=== PATIENT | female | born 1950 | race Caucasian/White ===

== ENCOUNTER 2019-04-13 09:34 | Inpatient (IN) | payer MEDICARE ==
[2019-04-13] MEDS ORDERED: OXYBUTYNIN CHLOR5 MG PO (09:40)
[2019-04-13] MEDS ORDERED: SINGULAIR10 MG PO (09:41)
[2019-04-13] MEDS ORDERED: ARMOUR THYROID240 MG PO (09:41)
[2019-04-13] MEDS ORDERED: COREG25 MG PO (09:42)
[2019-04-13] MEDS ORDERED: VALIUM 2 MG TAB2 MG PO (09:42)
[2019-04-13] MEDS ORDERED: ALDACTONE50 MG PO (09:42)
[2019-04-13] MEDS ORDERED: LIPITOR10 MG PO (09:43)
[2019-04-13 10:10] LABS: BASOPHILS 0.6 % (0-2); EOSINOPHILS 1.7 % (0-7); HEMATOCRIT 37.5 % (36.0-48.0); HEMOGLOBIN 12.5 g/dL (12-16); IMMATURE GRANULOCYTES 0.6 % (0-5); LYMPHOCYTES 21.4 % (15-50); MCH 31.6 pg (26.0-34.0); MCHC 33.3 g/dL (31.0-37.0); MCV 94.7 fL (80.0-100.0); MEAN PLATELET VOLUME 10.3 fL (7.4-10.4); MONOCYTES 7.9 % (2-11); NEUTROPHILS 67.8 % (40-80); PLATELET COUNT 294 10x3/uL (130-400); RBC 3.96 10x6/uL (4.00-5.40); RDW 12.9 % (11.5-14.5); WBC 10.1 10x3/uL (4.8-10.8)
[2019-04-13 10:15] VITALS: BP 131/74
--- NOTE | 2019-04-13 10:15 | NUR ---
PATIENT AWAKE AND ALERT, BLANKET GIVEN FOR COMFORT. UPDATED ON PLAN OF CARE AND DELAYS IN CARE. WILL CONTINUE TO MONITOR.
[2019-04-13 10:23] LABS: ALBUMIN 3.7 g/dL (3.4-5.0); ALKALINE PHOSPHATASE 58 U/L (46-116); ALT (SGPT) 31 U/L (10-68); BILIRUBIN - TOTAL 0.39 mg/dL (0.2-1.3); CALC OSMOLALITY 286 mosm/kg (275-300); CALCIUM 9.2 mg/dL (8.5-10.1); CARBON DIOXIDE 25.8 mmol/L (21.0-32.0); CHLORIDE - SERUM 106 mmol/L (98-107); CREATININE - SERUM 0.9 mg/dL (0.6-1.3); GLUCOSE 113 mg/dL (74-106); POTASSIUM - SERUM 4.5 mmol/L (3.5-5.1); PROTEIN - SERUM 7.4 g/dL (6.4-8.2); SODIUM 141 mmol/L (136-145); UREA NITROGEN 27 mg/dL (7-18); eGFR NON AFRICAN AMERICAN 66 mL/min (90-120)
[2019-04-13 10:26] LABS: APTT 26.5 SECONDS (22.8-39.4); INR 1.03 (0.85-1.17)
[2019-04-13 10:36] LABS: CREATINE KINASE 45 UL (21-215); MAGNESIUM - SERUM 1.9 mg/dL (1.8-2.4); TROPONIN-I < 0.017 ng/mL (0.000-0.060)
[2019-04-13 11:04] LABS: D-DIMER-QUANTITATIVE 0.73 ug/mLFEU (0.20-0.54)
--- NOTE | 2019-04-13 11:10 | NUR ---
URINE SENT TO LAB VIA TUBE SYSTEM.
[2019-04-13 11:38] LABS: APPEARANCE CLEAR (CLEAR); BILIRUBIN NEGATIVE (NEGATIVE); COLOR YELLOW (YELLOW); GLUCOSE NEGATIVE (NEGATIVE); KETONE NEGATIVE (NEGATIVE); NITRITE POSITIVE (NEGATIVE); PROTEIN NEGATIVE (NEGATIVE); SPECIFIC GRAVITY 1.015 (1.005-1.020); UROBILINOGEN NORMAL (NORMAL)
[2019-04-13 11:39] LABS: BACTERIA MANY /hpf (NONE SEEN); EPITHELIAL CELLS OCC /hpf (0-5); HYALINE CAST RARE /lpf (NONE SEEN); MUCUS <1+ /lpf (NONE SEEN)
[2019-04-13 11:55] VITALS: BP 109/52
--- NOTE | 2019-04-13 12:15 | NUR ---
PATIENT AWAKE AND ALERT. RESPIRATIONS EVEN AND UNLABORED. UPDATED ON PLAN OF CARE AND DELAYS IN CARE. WILL CONTINUE TO MONITOR.
--- NOTE | 2019-04-13 13:00 | NUR ---
AMBULATED PATIENT WITHOUT OXYGEN. SAT DECREASED TO 88% AND INCREASED DYSPNEA. WALKED HER BACK TO THE ROOM AND CHECKED OXYGEN SAT ON HER TOE. 91% ON RA SITTING.
[2019-04-13 15:02] LABS: CKMB 0.3 U/L (0.0-3.6); CREATINE KINASE 47 UL (21-215); TROPONIN-I < 0.017 ng/mL (0.000-0.060)
[2019-04-13 15:11] VITALS: BP 117/66
[2019-04-13 15:32] VITALS: BP 108/57; BMI 36.9
--- NOTE | 2019-04-13 15:46 | NUR ---
PATIENT ADMITTED TO ROOM 2238. SIGNIFICANT OTHER AND SON AT BEDSIDE. ALERT AND ORIENTED X 3. LUNGS CLEAR BILATERALLY IN ALL HOWE. BOWEL SOUNDS ACTIVE X 4. SKIN INTACT WITHOUT REDNESS. STATES CAME IN WITH CHEST PAIN AND ADMITTED WITH SOB. O2 IN PLACE AT 2L NC. IV TO LEFT AC PATENT WITHOUT REDNESS. DENIES PAIN. REQUESTED AND GIVEN SPRITE. DENIES FURTHER NEEDS. BED LOW. CALL HOLLIDAY AND PERSONAL ITEMS IN REACH. WILL CONTINUE TO MONITOR.
--- NOTE | 2019-04-13 16:16 | NUR ---
RESTING IN BED. DENIES PAIN. DENIES NEEDS. WILL CONTINUE TO MONITOR.
--- NOTE | 2019-04-13 16:38 | NUR ---
REALIZED PATIENT HAS PRN NORCO, BRINGING FALL SCORE TO 3. PATIENT REFUSED BED ALARM. BED ALARM REFUSAL SIGNED AND ON CHART.
[2019-04-13 16:58] VITALS: BP 94/62
--- NOTE | 2019-04-13 18:19 | NUR ---
SITTING IN BED. REQUESTED AND GIVEN SHERBET. DENIES FURTHER NEEDS. DENIES PAIN. BED LOW. CALL HOLLIDAY AND PERSONAL ITEMS IN REACH.
[2019-04-13 20:22] VITALS: BP 122/57
[2019-04-13 21:26] LABS: CKMB 0.4 U/L (0.0-3.6); CREATINE KINASE 51 UL (21-215); TROPONIN-I < 0.017 ng/mL (0.000-0.060)
[2019-04-14 00:45] VITALS: BP 105/58
[2019-04-14 02:19] LABS: CKMB 0.2 U/L (0.0-3.6); CREATINE KINASE 61 UL (21-215); TROPONIN-I < 0.017 ng/mL (0.000-0.060)
--- NOTE | 2019-04-14 04:06 | NUR ---
PATIENT C/O CHEST PAIN PRESSER, AND DIFFICULTY BREATHING AT 1930. CALL TO dealer development manager SUPERVISOR NET MAKING MISTI VALDERRAMA. V/S 122/59, 101, 97.8, 18, 92% ADJUNCT PHILOSOPHY FACULTY RETRUNED AND CAME TO FLOOR NEW ORDERS FOR ELECTROCARDIOGRAM, TROPONIN -1, CREATINE KINASE, CKMM X3 LABS HAVE BEEN WNL. PT WITH NO FUTHER C/O OF DISCOMFORT.
--- NOTE | 2019-04-14 05:09 | NUR ---
PT TRUNED OFF IV PUMP IN THE NIGGHT AND TRUNED IT TO THE WALL.
[2019-04-14 05:26] VITALS: BP 103/45
[2019-04-14 05:59] LABS: BASOPHILS 0.1 % (0-2); EOSINOPHILS 0 % (0-7); HEMATOCRIT 34.9 % (36.0-48.0); HEMOGLOBIN 11.8 g/dL (12-16); IMMATURE GRANULOCYTES 0.4 % (0-5); LYMPHOCYTES 7.3 % (15-50); MCH 31.6 pg (26.0-34.0); MCHC 33.8 g/dL (31.0-37.0); MCV 93.3 fL (80.0-100.0); MEAN PLATELET VOLUME 10.1 fL (7.4-10.4); MONOCYTES 0.9 % (2-11); NEUTROPHILS 91.3 % (40-80); PLATELET COUNT 281 10x3/uL (130-400); RBC 3.74 10x6/uL (4.00-5.40); RDW 12.6 % (11.5-14.5)
[2019-04-14 06:09] LABS: WBC 15.2 10x3/uL (4.8-10.8)
[2019-04-14 06:20] LABS: ALBUMIN 3.3 g/dL (3.4-5.0); ANION GAP 15.6 mmol/L (8-16); BILIRUBIN - TOTAL 0.2 mg/dL (0.2-1.3); CALCIUM 8.4 mg/dL (8.5-10.1); CARBON DIOXIDE 20.4 mmol/L (21.0-32.0); PROTEIN - SERUM 6.7 g/dL (6.4-8.2)
[2019-04-14 08:42] VITALS: BP 116/54
[2019-04-14 08:45] LABS: CKMB 0.3 U/L (0.0-3.6); CREATINE KINASE 68 UL (21-215); TROPONIN-I < 0.017 ng/mL (0.000-0.060)
[2019-04-14] MEDS ORDERED: NITROQUICK0.4 MG SL (11:37)
[2019-04-14] MEDS ORDERED: ALBUTEROL2.5 MG/3 M INH (11:37)
[2019-04-14] MEDS ORDERED: FLUTICASONE PRO16 GM NASAL (11:38)
[2019-04-14] MEDS ORDERED: TESSALON PERLE100 MG PO (11:38)
[2019-04-14] MEDS ORDERED: OMNICEF300 MG PO (11:39)
[2019-04-14] MEDS ORDERED: PREDNISONE10 MG PO (11:39)
[2019-04-14] MEDS ORDERED: NORCO-7.5 PO (12:06)
[2019-04-14] MEDS ORDERED: ALBUTEROL SULF8.5 GM INH (12:06)
[2019-04-14 12:37] VITALS: BP 157/55
--- NOTE | 2019-04-14 12:49 | NUR ---
REC'D PT SITTING IN BED AOX4 RESP EVEN AND NONLABORED PT DENIES NEEDS AT THIS TIME SRX2 BED AT LOWEST SETTING CALL LIGHT WITHIN REACH WILL CONTINUE TO MONITOR. IV TO LEFT AC PATENT AND INTACT AT THIS TIME. WILL CONTINUE TO MONITOR
--- NOTE | 2019-04-14 13:26 | NUR ---
IV DISCONTINUED WITH CATHETER INTACT AT THIS TIME. PT HANDED SCRIPT FOR PAIN MEDICATION, AND GIVEN DISCHARGE INSTRUCTIONS AT THIS TIME, PT TAKEN VIA WHEELCHAIR VIA PRIVATE VEHICLE AT THIS TIME
--- NOTE | 2019-04-16 09:50 | CN ---
PATIENT NAME:ALDEN RUVALCABA MEDICAL RECORD: [id number] : 50 LOCATION:[id number] ADMIT DATE: 04/13/19 ACCOUNT: [id number] CONSULTING PHYSICIAN: AMILCAR VALDERRAMA MD REFERRING PHYSICIAN: KAILYN MADDOX DO DATE OF CONSULTATION: 04/14/2019 CARDIOLOGY CONSULTATION ADMITTING DIAGNOSES: 1. Atypical chest pain. 2. Smoking history. 3. Chronic obstructive pulmonary disease. 4. Hypertension. 5. Hyperlipidemia. HISTORY OF PRESENT ILLNESS: Mrs. Ruvalcaba presents with extremely atypical chest pain, sharp chest pain that only lasts seconds. She had recurrent episodes of it. It was centered around her left axillary area. She does not have a history of coronary artery disease. Her troponin is normal. EKG is normal. PHYSICAL EXAMINATION: GENERAL APPEARANCE: Well-nourished, well-developed, appears stated age. Level of distress, comfortable. PSYCHIATRIC: Mental status, alert, normal affect. Orientation, oriented to time, place and person. EYES: Lids and conjunctiva, noninjected. No discharge, no pallor. ENT: Lips, teeth, gums, normal dentition. Oropharynx, no cyanosis, no pallor. NECK: Carotid arteries, bilateral normal upstroke, no bruits, no thrills. JUGULAR VEINS: No jugular venous pressure or distention. CERVICAL LYMPH NODES: Nontender, nonenlarged. THYROID: Not enlarged. Nontender. No nodules. LUNGS: Respiratory effort, unlabored. CHEST: Normal curvature. No thoracic deformity. No chest wall tenderness. Percussion, resonant. Auscultation, clear. No wheezes, no rales, no rhonchi. CARDIOVASCULAR: Precordial exam, nondisplaced. No heaves or pericardial thrills. Rate and rhythm, regular. Heart sounds, normal S1, normal S2. No S3, no gallop, no rub. Systolic murmur, not heard. Diastolic murmur, not heard. EXTREMITIES: No cyanosis, no edema. Peripheral pulses, full and equal in all extremities, except as noted. No bruits appreciated. ABDOMEN: Soft, nondistended. Normal aorta. No bruit. Nontender. No masses. Liver, nontender, no hepatomegaly. Spleen, nontender, no splenomegaly. MUSCULOSKELETAL: No joint tenderness. No joint swelling. No erythema. NEUROLOGICAL: Normal gait, normal strength, normal tone. SKIN: Warm and dry. OVERALL IMPRESSION: Chest pain, extremely atypical. This is musculoskeletal in nature. If she continues to have the chest discomfort, can proceed with stress testing with Cardiolite imaging as an outpatient, but at this point she needs no other cardiac workup or treatment, just continue her current medications. TRANSINT:[id number] Voice Confirmation ID: [id number] DOCUMENT ID: [id number] CONSULT REPORT [id number] ALDEN RUVALCABA, AMILCAR AARGON at 0950 CC: [id number] DICTATION DATE: 04/14/19 0944 MANAGER FORMS: 04/14/19 1007 DIS IN 04/14/19 [id number] [place] [address]
[2019-04-16 10:10] LABS: ANA REFLEX - DIRECT Negative (Negative)
[2019-04-19 11:08] LABS: IMMUNOGLOBULIN E 214 IU/mL (6-495)
--- NOTE | 2019-04-20 07:25 | MORECARE ---
CASE MANAGEMENT DISCHARGE SUMMARY PATIENT: ALDEN RUVALCABA UNIT: [id number] ADM DATE: 04/13/19 AGE: 69 : 50 SEX: F ROOM/BED: [id number].[id number] AUTHOR: SACHI KWON PHYSICIAN: REFERRING PHYSICIAN: KAILYN MADDOX DO DATE OF SERVICE: 04/20/19 Discharge Plan Patient Name: ALDEN RUVALCABA [facility] [facility] 1950 Planned Disposition: Anticipated Discharge Date: Discharge Date: 04/14/2019 Expected LOS: Initial Reviewer: [email or web address] Initial Review Date: 04/20/2019 Generated: 04/20/19 8:24 am Patient Name: ALDEN RUVALCABA Page [id number] at 0725 All edits/amendments must be made on the electronic document DICTATION DATE: 04/20/19723 HARDWARE DESIGNER: MELVIN 04/20/19723 RPT#: [id number] DC DATE:04/14/19 STATUS: DIS IN [facility] [address] [place] [address] END OF REPORT
== END 2019-04-14 13:28 | disposition home or self-care (01) | DRG 202 ==
LOC: D.ER 09:34 → D.MS 15:12
PROVIDERS: Family Medicine; Internal Medicine Pulmonary Disease; ADMIT Family Medicine; ATTEND Family Medicine
DX: J45.909 Unspecified asthma, uncomplicated (principal); N39.0 Urinary tract infection, site not specified; R07.9 Chest pain, unspecified; R06.00 Dyspnea, unspecified; E03.9 Hypothyroidism, unspecified; E78.5 Hyperlipidemia, unspecified